=== PATIENT | male | born 1995 | race African-American/Black ===

== ENCOUNTER 2024-05-17 20:20 | Emergency (ER) | payer SELFPAY ==
[~2024-05-17] VITALS: Ht 172.7 cm; Wt 75.0 kg
[2024-05-17 20:22] VITALS: O2SAT 98
[2024-05-17 21:00] VITALS: TEMP 36.66960
[2024-05-17] MEDS ORDERED: IBUP-2029 MT (22:26)
[2024-05-17 22:49] VITALS: BP 153/98; PULSE 93; RESP 14; O2SAT 99
== END 2024-05-17 22:51 | disposition home or self-care (01) ==
LOC: ER 20:20
DX: S06.0X1A Concussion with loss of consciousness of 30 minutes or less, initial encounter (principal); S01.311A Laceration without foreign body of right ear, initial encounter; W18.39XA Other fall on same level, initial encounter; Y93.89 Activity, other specified; Y92.89 Other specified places as the place of occurrence of the external cause; Y99.8 Other external cause status
CPT/HCPCS: 99283; Z7610